=== PATIENT | female | born 1970 | race Hispanic/Latino ===

== ENCOUNTER 2020-07-07 08:58 | Observation (INO) | payer OTHER ==
[~2020-07-07] VITALS: Ht 157.5 cm; Wt 77.1 kg
[~2020-07-07 08:58] MED LIST: AUGMENTIN 875-1 EACH PO; FERROUS SULFAT325 MG; FOLIC ACID1 MG PO
[2020-07-07 09:21] LABS: BASOPHILS % 0.4 % (0.0-1.0); EOSINOPHILS % 0.9 % (0.0-6.0); LYMPHOCYTES # (AUTO) 1.7 (1.0-3.2); LYMPHOCYTES % 35.3 % (18.0-39.1); MEAN CORPUSCULAR HEMOGLOBIN 15.3 pg (28-32); MEAN CORPUSCULAR HGB CONC 25.2 g/dL (31-35); MEAN CORPUSCULAR VOLUME 60.6 fL (81-99); MONOCYTES # (AUTO) 0.3 (0.2-0.8); NEUTROPHILS # (AUTO) 2.7 (2.1-6.9); PLATELET COUNT 489 x10e3/uL (140-360); RED CELL DISTRIBUTION WIDTH 19.4 % (11.7-14.4)
--- NOTE | 2020-07-07 09:25 | Emergency Department Note ---
History of Present Illnes History of Present Illness Chief Complaint: General Medicine Complaints History of Present Illness This is a 49 year old female arrives to the ED for blood transfusion secondary to low hemoglobin. Onset (how long ago): day(s) Severity: mild Onset quality: gradual Timing of current episode: constant Chronicity: recurrent Relieving factors: none Exacerbating factors: none Associated symptoms: Reports weakness Past Medical/Family History Physician Review I have reviewed the patient's past medical and family history. Any updates have been documented here. Past Medical History Other Medical History: IRON DEFICIENCY ANEMIA Social History Smoking Cessation: Never Smoker Counseling Performed: No Alcohol Use: None Other Any Pre-Existing Lines (PICC,: No Review of Systems Review of Systems Constitutional: Reports no symptoms EENTM: Reports no symptoms Cardiovascular: Reports no symptoms Respiratory: Reports no symptoms Gastrointestinal: Reports no symptoms Genitourinary: Reports no symptoms Musculoskeletal: Reports no symptoms Integumentary: Reports no symptoms Neurological: Reports as per HPI, Reports weakness Psychological: Reports no symptoms Endocrine: Reports no symptoms Hematological/Lymphatic: Reports no symptoms Review of other systems: All other systems negative Physical Exam Related Data Allergies: Coded Allergies: No Known Allergies (Unverified , 02/12/17) Vital signs reviewed: Yes Physical Exam CONSTITUTIONAL Constitutional: Present well-developed, Present well-nourished HENT HENT: Present normocephalic, Present atraumatic, Present oropharynx clear/moist, Present nose normal HENT L/R: Present left ext ear normal, Present right ext ear normal EYES Eyes: Reports PERRL, Reports conjunctivae normal NECK Neck: Present ROM normal PULMONARY Pulmonary: Present effort normal, Present breath sounds normal CARDIOVASCULAR Cardiovascular: Present regular rhythm, Present heart sounds normal, Present capillary refill normal, Present normal rate GASTROINTESTINAL Abdominal: Present soft, Present nontender, Present bowel sounds normal GENITOURINARY Genitourinary: Present exam deferred SKIN Skin: Present warm, Present dry MUSCULOSKELETAL Musculoskeletal: Present ROM normal NEUROLOGICAL Neurological: Present alert, Present oriented x 3, Present no gross motor or sensory deficits PSYCHOLOGICAL Psychological: Present mood/affect normal, Present judgement normal Results Laboratory Laboratory Laboratory Tests Test 07/07/20 09:10 Lab results reviewed: Yes Laboratory comments Laboratory Tests Test 07/07/20 10:00 07/07/20 09:10 White Blood Count 4.67 x10e3/uL (4.8-10.8) Red Blood Count 3.40 x10e6/uL (3.6-5.1) Hemoglobin 5.2 g/dL (12.0-16.0) Hematocrit 20.6 % (34.2-44.1) Mean Corpuscular Volume 60.6 fL (81-99) Mean Corpuscular Hemoglobin 15.3 pg (28-32) Mean Corpuscular Hemoglobin Concent 25.2 g/dL (31-35) Red Cell Distribution Width 19.4 % (11.7-14.4) Platelet Count 489 x10e3/uL (140-360) Neutrophils (%) (Auto) 57.0 % (38.7-80.0) Lymphocytes (%) (Auto) 35.3 % (18.0-39.1) Monocytes (%) (Auto) 6.0 % (4.4-11.3) Eosinophils (%) (Auto) 0.9 % (0.0-6.0) Basophils (%) (Auto) 0.4 % (0.0-1.0) Neutrophils # (Auto) 2.7 (2.1-6.9) Lymphocytes # (Auto) 1.7 (1.0-3.2) Monocytes # (Auto) 0.3 (0.2-0.8) Eosinophils # (Auto) 0.0 (0.0-0.4) Basophils # (Auto) 0.0 (0.0-0.1) Absolute Immature Granulocyte (auto 0.02 x10e3/uL (0-0.1) Prothrombin Time 13.4 seconds (11.9-14.5) Prothromb Time International Ratio 0.97 Sodium Level 139 mmol/L (136-145) Potassium Level 3.7 mmol/L (3.5-5.1) Chloride Level 107 mmol/L (98-107) Carbon Dioxide Level 22 mmol/L (22-29) Anion Gap 13.7 mmol/L (8-16) Blood Urea Nitrogen 9 mg/dL (7-26) Creatinine 0.77 mg/dL (0.57-1.11) Estimat Glomerular Filtration Rate > 60 ML/MIN (60-) BUN/Creatinine Ratio 12 (6-25) Glucose Level 123 mg/dL (74-118) Calcium Level 8.8 mg/dL (8.4-10.2) Total Bilirubin 0.2 mg/dL (0.2-1.2) Aspartate Amino Transf (AST/SGOT) 13 IU/L (5-34) Alanine Aminotransferase (ALT/SGPT) 12 IU/L (0-55) Alkaline Phosphatase 92 IU/L (40-150) Total Protein 7.1 g/dL (6.5-8.1) Albumin 3.7 g/dL (3.5-5.0) Globulin 3.4 g/dL (2.3-3.5) Albumin/Globulin Ratio 1.1 (0.8-2.0) Assessment & Plan Medical Decision Making MDM 49-year-old female sent to the ED by her PCP for low hemoglobin. Patient has a history of menorrhagia. Patient not actively bleeding at this time. Patient's hemoglobin noted 5.4. 2 units PRBC ordered and patient admitted for telemetry monitoring. Dr. Alcantar informed. Accepted admission. Assessment & Plan Final Impression: (1) Anemia Depart Disposition: ADMITTED Home Meds Reported Medications Folic Acid (FOLIC ACID) 1 Mg Tablet, 1 MG PO DAILY, #90 TAB 02/13/17 Ferrous Sulfate (FERROUS SULFATE) 325 Mg Tablet, BID, #60 02/13/17 Amoxicillin/Potassium Clav (AUGMENTIN 875-125 TABLET) 1 Each Tablet, 875 MG PO BID, #30 TAB 02/12/17 XAVI CABRAL DO Jul 07, 2020 09:25
[2020-07-07 09:37] LABS: HEMOGLOBIN 5.2 g/dL (12.0-16.0)
[2020-07-07 09:38] LABS: HEMATOCRIT 20.6 % (34.2-44.1)
[2020-07-07 09:41] LABS: ALANINE AMINOTRANSFERASE 12 IU/L (0-55); ALBUMIN 3.7 g/dL (3.5-5.0); ALBUMIN/GLOBULIN RATIO 1.1 (0.8-2.0); ALKALINE PHOSPHATASE 92 IU/L (40-150); ANION GAP 13.7 mmol/L (8-16); BLOOD UREA NITROGEN 9 mg/dL (7-26); BUN/CREATININE RATIO 12 (6-25); CALCIUM 8.8 mg/dL (8.4-10.2); CARBON DIOXIDE 22 mmol/L (22-29); CHLORIDE 107 mmol/L (98-107); CREATININE, SERUM 0.77 mg/dL (0.57-1.11); EST GLOMERULAR FILTRATION RATE > 60 ML/MIN (60-); GLUCOSE 123 mg/dL (74-118); POTASSIUM 3.7 mmol/L (3.5-5.1); SODIUM 139 mmol/L (136-145)
[2020-07-07] MEDS ORDERED: SODIUM CHLORIDE 0.9% 250ML 250 ML IV ONE ×2 (09:45→13:30)
[2020-07-07 10:01] LABS: INR 0.97; PROTHROMBIN TIME 13.4 seconds (11.9-14.5)
[2020-07-07 10:43] LABS: CREATINE KINASE 33 IU/L (29-168)
[2020-07-07 11:03] LABS: CREATINE KINASE MB < 1.00 ng/mL (0-4.3)
[2020-07-07] MEDS ORDERED: FERROUS SULFAT325 MG PO (13:14)
[2020-07-07] MEDS ORDERED: PANTOPRAZOLE SO40 MG PO (13:14)
[2020-07-07] MEDS ORDERED: ASCORBIC ACID500 M4 PO (13:14)
[2020-07-07] MEDS ORDERED: HYDRALAZINE HCL 20 MG/ML VIAL IV PRN (13:15)
[2020-07-07] MEDS ORDERED: ONDANSETRON HCL INJ 2MG/ML 2ML 2 MG/ML VIAL IV PRN (13:15)
[2020-07-07] MEDS ORDERED: ACETAMINOPHEN 325 MG TAB PO PRN (13:15)
[2020-07-07] MEDS ORDERED: DOCUSATE SODIU100 MG PO (13:25)
[2020-07-07 13:47] VITALS: BP 139/77
--- NOTE | 2020-07-07 14:00 | NUR ---
PT ARRIVED FROM ER. PT IS AAOX4. DAUGHTER AT BEDSIDE. 1 UNIT OF BLOOD TRANSFUSION COMPLETED AT ER PER THE SHIFT REPORT. CONSENT FOR BLOOD TRANSFUSION IS ALREADY TAKEN BY ER NURSE AND PLACED IN THE CHART. EDUCATED PT ABOUT FALL PRECAUTIONS. PT VERBALIZED UNDERSTANDING. BED IS LOW AND LOCKED. SIDE RAILS X2. CALL LIGHT WITH IN EASY REACH. ALL SAFETY MEASURES IN PLACE. PT DENIES NEEDS AT THIS TIME.
[2020-07-07 15:00] VITALS: BP 131/75
--- NOTE | 2020-07-07 15:00 | NUR ---
CONTAINER AT BEDSIDE FOR OCCULT BLOOD STOOL. PT IS AWARE. WAITING FOR BM.
--- NOTE | 2020-07-07 15:20 | NUR ---
SECOND UNIT OF BLOOD TRANSFUSION STARTED PER THE ORDER. PT DAUGHTER AT BEDSIDE. PT DENIES NEEDS AT THIS TIME.
[2020-07-07 16:26] VITALS: BP 130/75
[2020-07-07] MEDS ORDERED: PANTOPRAZOLE SOD 40 MG TABEC PO SCH (16:30)
[2020-07-07 16:31] VITALS: BP 130/75
--- NOTE | 2020-07-07 17:50 | NUR ---
SECOND UNIT OF BLOOD TRANSFUSION COMPLETED. PT TOLERATED WELL. NO DISCOMFORT NOTED. PT DENIES NEEDS AT THIS TIME.
--- NOTE | 2020-07-07 18:06 | NUR ---
THIRD UNIT OF BLOOD TRANSFUSION STARTED PER THE ORDER. DAUGHTER AT BEDSIDE. PT DENIES NEEDS AT THIS TIME.
--- NOTE | 2020-07-07 19:06 | NUR ---
BEDSIDE SHIFT REPORT GIVEN TO THE BUDGET TECHNICIAN RN. THIRD UNIT OF BLOOD TRANSFUSION IS GOING ON. PT DENIES ANY KIND OF PAIN OR DISCOMFORT AT THIS TIME. DAUGHTER AT BEDSIDE. PT DENIED FURTHER NEEDS
--- NOTE | 2020-07-07 19:10 | NUR ---
Completed bedside rounds with morning nurse. Pt alert and oriented to name, sitting up in bed HOB 45 degrees, denies pain at this time. Receiving 3/3 PRBCs running @120 mls/hr, no reactions noted. Daughter at bedside. Call light within reach.
--- OUTSIDE RECORDS SUMMARY | 2020-07-07 19:53 | XMS REPORT | Continuity of Care Document ---
Author Author [facility] t Organization [facility] Address [address] [place] [address] Phone Unavailable Care Team Providers Care Bookkeepers Supervisor Name Role Phone Unavailable Unavailable Payers Payer Name Policy Type Policy Number Effective Date Expiration Date S ource Problems This patient has no known problems. Allergies, Adverse Reactions, Alerts Allergy Name Allergy Type Status Severity Reaction(s) Onset Date Inacti ve Date Treating Clinician Comments Source No Known Allergies DA Active U 2017-11[facility]13 00:00:[facility] Medications This patient has no known medications. Procedures This patient has no known procedures. Results Test Description Test Time Test Comments Results Result Comments Source - XR T-SPINE 3 VIEWS 2020-01-08 10:53:00 FAX: Joseph Fisher DO [phone] [place]: O St: REG -- Name: PING MANLEYERANZA [facility] : 1970 Age/S: 49/F Britney Isabelncer [address] Unit #: [id number] Loc: [place] [address] Phys: Joseph Gambino DO Acct: [id number] Dis Date: Status: REG CLI PHONE #: [phone] Exam Date: 01/08/2020 1022 FAX #: [phone] Reason: EXAMS: CPT CODE: [id number] XR T-SPINE 3 VIEWS 52563 HISTORY: Pain EXAM: AP, lateral, and open-mouth views of the cervical spine AP, lateral, and swimmers views of the thoracic spine.. AP, lateral, and coned-down lumbosacral views of the lumbar spine. Comparison: None FINDINGS: No acute fracture or subluxation. Vertebral body alignment is satisfactory. Vertebral body heights are preserved. Small osteophytes are present in the vertebral bodies of the thoracic spine. Disc spaces are preserved. No paraspinal soft tissue contour abnormality. Visualized thorax and abdomen are within normal limits. IMPRESSION: Mild degenerative changes in the thoracic spine. The remainder of the spine is within normal limits.. Location: [facility] at 1053 Reported and signed by: Edwin Mistry MD CC: Joseph Gambino Technologist: RAMOS HOYT JR Trnwird Date/Time/By: 01/08/2020 (8026) : By: [email or web address] Orig Print D/T: S: 01/08/2020 (2263) PAGE 1 Signed Report - XR L-SPINE 2/3 VIEWS 2020-01-08 10:53:00 FAX: Joseph Fisher DO [phone] [place]: O St: REG -- Name: OSCAR MANLEY [facility] : 1970 Age/S: 49/F [address] Unit #: [id number] Loc: [place] [address] Phys: Joseph Gambino DO Acct: [id number] Dis Date: Status: REG CLI PHONE #: [phone] Exam Date: 01/08/2020 1010 FAX #: [phone] Reason: M54.5 EXAMS: CPT CODE: [id number] XR L-SPINE 2/3 VIEWS 13663 HISTORY: Pain EXAM: AP, lateral, and open-mouth views of the cervical spine AP, lateral, and swimmers views of the thoracic spine.. AP, lateral, and coned-down lumbosacral views of the lumbar spine. Comparison: None FINDINGS: No acute fracture or subluxation. Vertebral body alignment is satisfactory. Vertebral body heights are preserved. Small osteophytes are present in the vertebral bodies of the thoracic spine. Disc spaces are preserved. No paraspinal soft tissue contour abnormality. Visualized thorax and abdomen are within normal limits. IMPRESSION: Mild degenerative changes in the thoracic spine. The remainder of the spine is within normal limits.. Location: [facility] at 1053 Reported and signed by: Edwin Mistry MD CC: Joseph Gambino Technologist: RAMOS HOYT JR Trnwird Date/Time/By: 01/08/2020 (5264) : By: [email or web address] Orig Print D/T: S: 01/08/2020 (4384) PAGE 1 Signed Report - XR C-SPINE 2-3 VIEWS 2020-01-08 10:53:00 FAX: Joseph Fisher DO [phone] [place]: O St: REG -- Name: OSCAR MANLEY [facility] : 1970 Age/S: 49/F [address] Unit #: [id number] Loc: [place] [address] Phys: Joseph Gambino DO Acct: [id number] Dis Date: Status: REG CLI PHONE #: [phone] Exam Date: 01/08/2020 1022 FAX #: [phone] Reason: EXAMS: CPT CODE: [id number] XR C-SPINE 2-3 VIEWS 92545 HISTORY: Pain EXAM: AP, lateral, and open-mouth views of the cervical spine AP, lateral, and swimmers views of the thoracic spine.. AP, lateral, and coned-down lumbosacral views of the lumbar spine. Comparison: None FINDINGS: No acute fracture or subluxation. Vertebral body alignment is satisfactory. Vertebral body heights are preserved. Small osteophytes are present in the vertebral bodies of the thoracic spine. Disc spaces are preserved. No paraspinal soft tissue contour abnormality. Visualized thorax and abdomen are within normal limits. IMPRESSION: Mild degenerative changes in the thoracic spine. The remainder of the spine is within normal limits.. Location: [facility] at 1053 Reported and signed by: Edwin Mistry MD CC: Joseph Gambino Technologist: RAMOS HOYT JR Trnscrd Date/Time/By: 01/08/2020 (3160) : By: [email or web address] Orig Print D/T: S: 01/08/2020 (9245) PAGE 1 Signed Report
--- OUTSIDE RECORDS SUMMARY | 2020-07-07 19:55 | XMS REPORT | Continuity of Care Document ---
Author Author [facility] t Organization [facility] Address [address] [place] [address] Phone Unavailable Care Team Providers Care Electrical Transmission Engineer Name Role Phone Unavailable Unavailable Payers Payer Name Policy Type Policy Number Effective Date Expiration Date S ource Problems This patient has no known problems. Allergies, Adverse Reactions, Alerts Allergy Name Allergy Type Status Severity Reaction(s) Onset Date Inacti ve Date Treating Clinician Comments Source No Known Allergies DA Active U 2017-11-13 00:00:00 [facility] Medications This patient has no known medications. Procedures This patient has no known procedures. Results Test Description Test Time Test Comments Results Result Comments Source - XR T-SPINE 3 VIEWS 2020-01-08 10:53:00 FAX: Joseph Fisher DO [phone] [place]: O St: REG -- Name: PING MANLEYERANZA [facility] : 1970 Age/S: 49/F Britney Isabelncer Teresa Unit #: [id number] Loc: [place] [address] Phys: Joseph Gambino DO Acct: [id number] Dis Date: Status: REG CLI PHONE #: [phone] Exam Date: 01/08/2020 1022 FAX #: [phone] Reason: EXAMS: CPT CODE: [id number] XR T-SPINE 3 VIEWS 11405 HISTORY: Pain EXAM: AP, lateral, and open-mouth [...] the spine is within normal limits.. Location: [facility] at 1053 Reported and signed by: Edwin Mistry MD CC: Joseph Gambino Technologist: RAMOS HOYT JR Trnnmrd Date/Time/By: 01/08/2020 (9886) : By: [email or web address] Orig Print D/T: S: 01/08/2020 (1914) PAGE 1 Signed Report - XR L-SPINE 2/3 VIEWS 2020-01-08 10:53:00 FAX: Joseph Fisher DO [phone] [place]: O St: REG -- Name: OSCAR MANLEY [facility] : 1970 Age/S: 49/F [address] Unit #: [id number] Loc: [place] [address] Phys: Joseph Gambino DO Acct: [id number] Dis Date: Status: REG CLI PHONE #: [phone] Exam Date: 01/08/2020 1010 FAX #: [phone] Reason: M54.5 EXAMS: CPT CODE: [id number] XR L-SPINE 2/3 VIEWS 30685 HISTORY: Pain EXAM: AP, lateral, and open-mouth [...] the spine is within normal limits.. Location: [facility] at 1053 Reported and signed by: Edwin Mistry MD CC: Joseph Gambino Technologist: RAMOS HOYT JR Trnnmrd Date/Time/By: 01/08/2020 (4379) : By: [email or web address] Orig Print D/T: S: 01/08/2020 (7840) PAGE 1 Signed Report - XR C-SPINE 2-3 VIEWS 2020-01-08 10:53:00 FAX: Joseph Fisher DO [phone] [place]: O St: REG -- Name: OSCAR MANLEY [facility] : 1970 Age/S: 49/F [address] Unit #: [id number] Loc: [place] [address] Phys: Joseph Gambino DO Acct: [id number] Dis Date: Status: REG CLI PHONE #: [phone] Exam Date: 01/08/2020 1022 FAX #: [phone] Reason: EXAMS: CPT CODE: [id number] XR C-SPINE 2-3 VIEWS 29126 HISTORY: Pain EXAM: AP, lateral, and open-mouth [...] the spine is within normal limits.. Location: [facility] at 1053 Reported and signed by: Edwin Mistry MD CC: Joseph Gambino Technologist: RAMOS HOYT JR Trnscrd Date/Time/By: 01/08/2020 (4203) : By: [email or web address] Orig Print D/T: S: 01/08/2020 (1868) PAGE 1 Signed Report
[2020-07-07 20:42] VITALS: BP 127/76
[2020-07-07 20:44] VITALS: BP 127/76
[2020-07-07 21:50] LABS: HEMATOCRIT 31.8 % (34.2-44.1); HEMOGLOBIN 9.3 g/dL (12.0-16.0)
[2020-07-07 22:06] LABS: CREATINE KINASE 34 IU/L (29-168)
[2020-07-07 22:28] LABS: CREATINE KINASE MB < 1.00 ng/mL (0-4.3)
--- NOTE | 2020-07-07 22:29 | NUR ---
Doctor's order to call with H/H results, no answer, left voicemail.
--- NOTE | 2020-07-07 22:35 | NUR ---
Spoke with Roberta WINDOWS MIGRATION TECHNICIAN regarding H/H results, ordered to D/C patient.
--- NOTE | 2020-07-07 23:05 | NUR ---
Pt D/C'd via WC to personal car going home. Daughter at bedside and transporting home. Pt received prescriptions, discussed discharge paperwork, patient verbalized understanding. VSS. 20g IV left FA and left AC removed, patient tolerated well.
--- NOTE | 2020-07-08 14:44 | Discharge Summary ---
ADMISSION DIAGNOSES: Acute blood loss anemia secondary to menorrhagia, obesity with a BMI of 31.4. DISCHARGE DIAGNOSES: Acute blood loss anemia secondary to menorrhagia, obesity with a BMI of 31.4. HISTORY: Menorrhagia. SURGICAL HISTORY: Tubal ligation. FAMILY HISTORY: The patient's sister had diabetes and cancer. SOCIAL HISTORY: Noncontributory. HOSPITAL COURSE: A 49-year-old female admitted from primary care office due to a hemoglobin of 4.6. Her labs were drawn on 07/06/2020 and the results were called on 07/07/2020. She was advised to come to the hospital for blood transfusion. She has a history of menorrhagia and her last period ended on 06/22/2020. She denies melena and bright red blood per rectum. On admission, her hemoglobin was 5.23. PRBCs were ordered and PPI was added to her medication list. She was discharged home with new prescriptions for Protonix, Colace, ferrous sulfate and vitamin C. She says she was on vitamin C in the past, but her doctor told her that she was no longer anemic and did not need it, so she stopped taking it. She will follow up with primary care in 1 to 2 weeks. The patient understands instructions and agrees to plan. Dictated by Roberta Wilkins NP MD BHAVNA Breen/MARIA VICTORIA /[id number]
== END 2020-07-07 23:07 | disposition home or self-care (01) ==
LOC: ER 09:15 → ERHOLD 09:43 → MED/SURG2 13:50
PROVIDERS: ADMIT Internal Medicine; ATTEND Internal Medicine
DX: D62 Acute posthemorrhagic anemia (principal); N92.0 Excessive and frequent menstruation with regular cycle; Z11.59 Encounter for screening for other viral diseases; E66.9 Obesity, unspecified; Z68.31 Body mass index [BMI] 31.0-31.9, adult
CPT/HCPCS: 36415; 80053; 82550; 82553; 84484; 85014; 85018; 85025; 85610; 86850; 86900; 86920; 99284; G0378; J7050; P9016; S0164; U0002